=== PATIENT | male | born 1985 | race Two or more races ===

== ENCOUNTER 2022-06-21 08:59 | Emergency (ER) | payer OTHER ==
[2022-06-21 09:19] VITALS: BP 132/81; PULSE 61; RESP 18; TEMP 99; BMI 24.0
[2022-06-21] MEDS ORDERED: SODIUM CHLORIDE 0.9% 500 ML INFUS.BAG IV ONE (10:19)
[2022-06-21] MEDS ORDERED: METOCLOPRAMIDE HCL INJECTION 10 MG/2 ML VIAL IVPB ONE (10:27)
[2022-06-21 10:36] LABS: BASO % 0.3 % (0-2.0); EOS % 1.4 % (0-4.5); HEMATOCRIT 45.2 % (35.4-49); HEMOGLOBIN 15.6 GM/dL (11.7-16.9); LYMPH % 18.8 % (8-40); MCH 30.5 pg (25.7-33.7); MCHC 34.6 g/dl (32.0-35.9); MEAN PLT VOLUME 7.2 fl (7.5-11.1); MONO % 7.7 % (3.8-10.2); NEUT % 71.8 % (42.8-82.8); PLATELET COUNT 214 10^3/uL (134-434); RBC 5.14 M/mm3 (4.00-5.60); RDW 12.9 % (11.9-15.9); WHITE BLOOD COUNT 5.7 K/mm3 (4.0-10.0)
[2022-06-21] MEDS ORDERED: METOCLOPRAMIDE HCL INJECTION 10 MG/2 ML VIAL ONE (10:55)
[2022-06-21 10:59] LABS: CALCIUM 9.2 mg/dL (8.5-10.1)
[2022-06-21 11:00] LABS: ALBUMIN 4.1 g/dl (3.4-5.0); BLOOD UREA NITROGEN 12.7 mg/dL (7-18)
[2022-06-21 11:03] LABS: CREATININE 0.8 mg/dL (0.55-1.3)
[2022-06-21 11:05] LABS: BILIRUBIN,TOTAL 0.6 mg/dL (0.2-1); TOT PROT 7.2 g/dl (6.4-8.2)
[2022-06-21 11:37] LABS: MAGNESIUM 2.3 mg/dL (1.8-2.4)
== END 2022-06-21 13:41 | disposition home or self-care (01) ==
LOC: JER 08:59
PROC: 3E033GC Introduction of Other Therapeutic Substance into Peripheral Vein, Percutaneous Approach (ICD-10-PCS; principal; 2022-06-21)
DX: R42 Dizziness and giddiness (principal); R07.9 Chest pain, unspecified
CPT/HCPCS: 36415; 70450-TC; 71046-TC-FY; 80053; 83735; 84484; 85025; 93005; 93010; 99285-25

== ENCOUNTER 2023-02-21 05:30 | Day surgery (SDC) | payer OTHER ==
[2023-02-20 09:11] VITALS: BMI 23.3
[2023-02-21 09:23] VITALS: TEMP 98.3
[2023-02-21 14:19] VITALS: BP 91/47; PULSE 52; RESP 16
== END 2023-02-21 11:34 | disposition home or self-care (01) ==
LOC: JASU-ENDO 05:30
PROVIDERS: ATTEND Student in an Organized Health Care Education/Training Program
PROC: 0DBN8ZX Excision of Sigmoid Colon, Via Natural or Artificial Opening Endoscopic, Diagnostic (ICD-10-PCS; 2023-02-21)
PROC: 0DBP8ZX Excision of Rectum, Via Natural or Artificial Opening Endoscopic, Diagnostic (ICD-10-PCS; principal; 2023-02-21 09:30)
DX: D12.8 Benign neoplasm of rectum (principal); K64.8 Other hemorrhoids
CPT/HCPCS: 88305-TC